=== PATIENT | female | born 1965 | race Caucasian/White ===

== ENCOUNTER 2019-02-16 06:50 | Outpatient (CLI) | payer BC ==
[~2019-02-16] VITALS: Ht 160 cm; Wt 75.9 kg
[2019-02-16 07:30] LABS: CALC OSMOLALITY 284 mosm/kg (275-300); CALCIUM 9.1 mg/dL (8.5-10.1); CHLORIDE - SERUM 108 mmol/L (98-107); CREATININE - SERUM 0.7 mg/dL (0.6-1.3); GLUCOSE 102 mg/dL (74-106); POTASSIUM - SERUM 4.4 mmol/L (3.5-5.1); SODIUM 143 mmol/L (136-145); UREA NITROGEN 12 mg/dL (7-18); eGFR NON AFRICAN AMERICAN > 90 mL/min (90-120)
[2019-02-16 07:37] LABS: APTT 26.2 SECONDS (22.8-39.4); INR 0.96 (0.85-1.17); PROTIME 12.3 SECONDS (11.6-15.0)
[2019-02-16 07:53] LABS: BASOPHILS 0.4 % (0-2); EOSINOPHILS 1.5 % (0-7); HEMATOCRIT 40.3 % (36.0-48.0); IMMATURE GRANULOCYTES 0.4 % (0-5); LYMPHOCYTES 28.8 % (15-50); MCH 29.5 pg (26.0-34.0); MCHC 32.3 g/dL (31.0-37.0); MCV 91.6 fL (80.0-100.0); MEAN PLATELET VOLUME 10.1 fL (7.4-10.4); MONOCYTES 8.3 % (2-11); NEUTROPHILS 60.6 % (40-80); PLATELET COUNT 236 10x3/uL (130-400); RDW 12.1 % (11.5-14.5); WBC 4.6 10x3/uL (4.8-10.8)
[2019-02-16] MEDS ORDERED: NEXIUM40 MG PO (08:35)
[2019-02-16] MEDS ORDERED: CELEXA10 MG PO (08:36)
[2019-02-16] MEDS ORDERED: MAXALT10 MG PO (08:36)
[2019-02-16] MEDS ORDERED: ZOCOR20 MG PO (08:36)
[2019-02-16] MEDS ORDERED: TOPAMAX50 MG PO (08:37)
[2019-02-16 08:45] VITALS: BP 105/65; Ht 160 cm; Wt 75.9 kg
--- NOTE | 2019-02-16 17:02 | NUR ---
1330 DRSG CDI.VSS. PAIN RX HAS RELIEVED MOST DISCOMFORT. IV D/C'D WITH CANNULA INTACT DISCHARGW INSTRUCTIONS GIVEN
== END 2019-02-16 13:40 | disposition home or self-care (01) ==
LOC: D.SP 06:50 → D.CT 09:00 → D.SP 09:00
PROVIDERS: General Practice; ATTEND Neurological Surgery
DX: M46.44 Discitis, unspecified, thoracic region (principal)